=== PATIENT | female | born 1980 | race Hispanic/Latino ===

== ENCOUNTER 2016-04-29 18:14 | Emergency (ER) | payer OTHER ==
[~2016-04-29] VITALS: Ht 152.4 cm; Wt 86.2 kg
[~2016-04-29 18:14] MED LIST: HYDROMORPHONE HC2 M1 PO; IBUPROFEN800 M1 PO; VITAFOL-ONE CA1 EACH PO
--- NOTE | 2016-04-29 18:40 | ED GI/GU/ABDOMINAL COMPLAINT ---
History of Present Illness General Chief Complaint: Female Urogenital Problems Stated Complaint: LOWER ABDOMINAL PAIN WITH VAGINAL BLEEDING Source: patient Exam Limitations: no limitations Vital Signs & Intake/Output Vital Signs & Intake/Output Vital Signs Date Time Temp Pulse Resp B/P Pulse O2 O2 Flow FiO2 Ox Delivery Rate 04/294 97.1 75 16 105/52 98 Room Air 04/29 2142 97.0 72 17 108/64 96 Room Air 04/29 2047 77 103/60 04/29 1951 66 18 95/58 98 Room Air 04/29 1819 96.2 70 18 97/68 95 Room Air ED Intake and Output 04/30 0000 04/29 1200 Intake Total 1000 Output Total Balance 1000 Intake, IV 1000 Patient 190 lb Weight Allergies Coded Allergies: NO KNOWN ALLERGIES (08/19/15) Reconcile Medications Hydromorphone HCl 2 MG TABLET 2 MG PO Q3P PRN PAIN SCALE 7-10 (SEVERE) Ibuprofen 800 MG TABLET 800 MG PO Q6P PRN PAIN SCALE 4-6 (MODERATE) Triage Note: RECEIVED 36 YO KAMILA ANDERS FROM HOME WITH C/O LOWER ABDOMINAL PAIN X 3 DAYS WITH VAGINAL BLEEDING. PT M1. LMP APPROX 2 WEEKS AGO. Triage Nurses Notes Reviewed? yes ? N Is pt currently ? No HPI: tHIS PATIENT is a 36-year-old [id number] female who presented to the emergency department today for evaluation of abdominal pain and vaginal bleeding. The patient last gave approximately 8 months ago by section without any complications. She reported that her last menstrual period was approximately 2 weeks ago and heavier than normal. She reported that she bled heavily for approximately 9 days. The patient was recently started approximately one month ago on a control pill from her CORPORATE HUMAN RESOURCES MANAGER, Dr. Jain, to help regulate her periods. The patient reported that her typical periods last approximately 5 days, are heavy during the first 2 days, and then lessen. The patient reported that 3 days ago she started having vaginal bleeding. She reported that since its onset it has been heavy. She reported that she goes through more than 7 pads daily. She reported that yesterday she had a migraine on the right side of her head and behind her right eye. Today she woke up not feeling well and then developed lower abdominal pain which gets up to a 10 out of 10. She reported that she took medicine at home which helped the pain, however, she does not remember the name of the medication. She reported that it was a liquid. Patient reported that she is now feeling nauseous. She denied any vomiting. The patient's last bowel movement was this morning. No diarrhea or constipation. The patient is not currently sexually active. She denied any fevers, chills, chest pain, difficulty breathing, or any urinary symptoms. (MATEUS LANG PA-C) Past History Travel History Traveled to [place] past 21 day No Medical History Any Pertinent Medical History? 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 No (MATEUS LANG PA-C) Review of Systems Review of Systems Constitutional: Reports: no symptoms. EENTM: Reports: no symptoms. Respiratory: Reports: no symptoms. Cardiovascular: Reports: no symptoms. GI: Reports: see HPI. Genitourinary: Reports: see HPI. Musculoskeletal: Reports: see HPI. Skin: Reports: no symptoms. Neurological/Psychological: Reports: no symptoms. Hematologic/Endocrine: Reports: see HPI. All Other Systems: Reviewed and Negative (MATEUS LANG PA-C) Physical Exam Physical Exam Gastrointestinal: normal bowel sounds, soft, OBESE. nO ORGANOMEGALY. nONDISTENDED. dIFFUSELY TENDER TO SUPERFICIAL AND DEEP PALPATION. nEGATIVE rOVSING SIGN. nEGATIVE PSOAS SIGN. nEGATIVE Tran SIGN. nO REBOUND OR GUARDING. nO MASSES APPRECIATED. pRIOR pFANNENSTIEL INCISION WELL-HEALED Comments: Well-developed well-nourished person in mild distress HEENT: Normal EENT exam, head normocephalic, moist mucous membranes Pupils equally round and reactive to light. Neck: Supple, no lymphadenopathy Back: Normal inspection. No CVA tenderness Cardiovascular: Regular rate and rhythm with no murmurs Respiratory: Chest nontender. No respiratory distress. Breath sounds clear to auscultation bilaterally External genitalia: Normal external genitalia with no lesions or edema. Active bleeding from the vaginal opening. No rectal bleeding. Extremity: Normal and equal pulses Neuro: Alert oriented x3, cranial nerves II through XII grossly intact. Skin: No appreciable rash on exposed skin, skin is warm and dry. Psych: Mood and affect is normal Core Measures ACS in differential dx? No Severe Sepsis Present: No Septic Shock Present: No (RICKEY SIMON,MATEUS) Progress Differential Diagnosis: AAA, AMI, appendicitis, biliary colic, bowel obstruction , colon cancer, cholecystitis, diverticulitis, ectopic , endometritis, gastritis, hepatitis, ischemic bowel, inflamm bowel dis, intrauterine , kidney stone, ovarian cyst, ovarian torsion, pancreatitis, PID/cervicitis, PUD/ GERD, perforated viscous, threatened AB, UTI/pyelo, HEMORRHAGIC CYST, FIBROID Plan of Care: Orders Procedure Date/time Status HUMAN BETA HCG SCREEN 04/29 1838 Complete URINALYSIS 04/29 1825 Complete PARTIAL THROMBOPLASTIN TIME 04/29 1824 Complete PROTHROMBIN TIME 04/29 1824 Complete LIPASE 04/29 1824 Complete DIRECT BILIRUBIN 04/29 1824 Complete COMPREHENSIVE METABOLIC PANEL 04/29 1824 Complete CBC WITHOUT DIFFERENTIAL 04/29 1824 Complete AMYLASE 04/29 1824 Complete TYPE & SCREEN (NOT X-MATCH) 04/29 1824 Complete Laboratory Tests 04/29/161958: Urine Color YEL, Urine Clarity HAZY H, Urine pH 6.0, Ur Specific [place] 1.025, Urine Protein NEG, Urine Ketones NEG, Urine Nitrite NEG, Urine Bilirubin NEG, Urine Urobilinogen 0.2, Ur Leukocyte Esterase NEG, Ur Microscopic SEDIMENT EXAMINED, Urine RBC >75 H, Urine WBC 1-3 H, Ur Epithelial Cells FEW, Urine Mucus FEW, Urine Hemoglobin LARGE H, Urine Glucose NEG 04/29/161838: Anion Gap 11, Estimated GFR > 60, BUN/Creatinine Ratio 22.9, Glucose 97, Calcium 9.3, Total Bilirubin 0.4, Direct Bilirubin 0.3, AST 17, ALT 31, Alkaline Phosphatase 75, Total Protein 6.8, Albumin 3.9, Globulin 2.9, Albumin/Globulin Ratio 1.3, Amylase < 30 L, Lipase 197, Total Beta HCG NEGATIVE, PT 11.5, INR 1.10, APTT 30, CBC w Diff NO MAN DIFF REQ, RBC 4.78, MCV 80.5 L, MCH 26.8 L, RDW 14.5, MPV 8.7, Gran % 58.6, Lymphocytes % 34.6, Monocytes % 4.9, Eosinophils % 1.6, Basophils % 0.3, Absolute Granulocytes 4.4, Absolute Lymphocytes 2.6, Absolute Monocytes 0.4, Absolute Eosinophils 0.1, Absolute Basophils 0, PUBS MCHC 33.3 04/29/161825: Total Beta HCG Cancelled Diagnostic Imaging: Viewed by Me: Ultrasound. Discussed w/RAD: Ultrasound. Radiology Impression: PATIENT: MARY SHAH PRESENT AGE: 36 PATIENT ACCOUNT NO: [id number] : 80 LOCATION: [facility] ORDERING PHYSICIAN: MATEUS LANG PA-C SERVICE DATE: 04/29/16 EXAM TYPE: US - US-TRANSVAGINAL EXAMINATION: US PELVIC CLINICAL INFORMATION: Heavy vaginal bleeding. COMPARISON: None TECHNIQUE: Transabdominal and transvaginal examination was performed. FINDINGS: LMP: 2 weeks ago The uterus is anteverted, measuring 10.8 x 4.5 x 5.8 cm. The cervical length is 3 cm. Endometrial thickness is 10 mm. Neither ovary was visualized. No adnexal masses were evident. No free fluid within the pelvis. IMPRESSION: The uterus appeared unremarkable. Endometrial thickness measured up to 1 cm. Neither ovary was visualized. No adnexal masses. DICTATED BY: MATI ESCALANTE MD DATE/TIME DICTATED: 04/29/161935 DESIGN AND SALES CONSULTANT:HELGA DATE/TIME TRANSCRIBED:04/29/161935 CONFIDENTIAL, DO NOT COPY WITHOUT APPROPRIATE AUTHORIZATION. <Electronically signed in Other Vendor System> SIGNED BY: MATI ESCALANTE MD 04/29/161942 Initial ED EKG: none Comments: 04/29/2016 8:14:19 PM: I spoke to on-call CORPORATE HUMAN RESOURCES MANAGER, Dr. Snyder, who is covering for Dr. Jain. He stated that as long as her H&H is normal, we can either give her 25 mg of IV Premarin here in the emergency department, or at her go home and take her control pill every 12 hours until the bleeding stops. He reported that based on the ultrasound does not seem like she would need a D& C. 04/29/2016 10:26:55 PM: The patient is requesting sleep at this time. Her blood pressure has been coming up. I discussed this patient with Dr. France who is in agreement the plan of this patient can be discharged safely with CORPORATE HUMAN RESOURCES MANAGER follow-up. I counseled the patient extensively on the importance of calling her CORPORATE HUMAN RESOURCES MANAGER tomorrow morning to schedule a follow-up appointment and returning to the emergency department immediately for any worsening symptoms. (MATEUS LANG PA-C) Departure Departure Disposition: HOME OR SELF CARE Condition: Stable Clinical Impression Primary Impression: Vaginal bleeding Referrals: CHARLIE AGUERO,HAILEY (PCP/Family) Additional Instructions: Please rest and be sure to stay hydrated. Take your control pill every 12 hours until the bleeding stops, then resume taking your control pill every 24 hours. Please call first thing tomorrow morning to schedule a follow-up appointment with your CORPORATE HUMAN RESOURCES MANAGER. Return to the emergency room immediately for any worsening symptoms or concerns. Departure Forms: Customer Survey General Discharge Information (MATEUS LANG PA-C) PA/ASSEMBLY WORKER Co-Sign Statement Statement: ED Attending supervision documentation- [] I saw and evaluated the patient. I have also reviewed all the pertinent lab results and diagnostic results. I agree with the findings and the plan of care as documented in the PA's/ASSEMBLY WORKER's documentation. [x] I have reviewed the ED Record and agree with the PA's/ASSEMBLY WORKER's documentation. [] Additions or exceptions (if any) to the PAs/ASSEMBLY WORKER's note and plan are summarized below: [] (ROLAN AGUERO,CHARLENE Ramires)
[2016-04-29 19:19] LABS: PT 11.5 SEC (9.4-12.5); PTT 30 SEC (25-37)
[2016-04-29 19:20] LABS: ABSOLUTE BASOPHIL COUNT 0 /CUMM (0.0-0.2); ABSOLUTE EOSINOPHIL COUNT 0.1 /CUMM (0.0-0.7); ABSOLUTE GRANULOCYTE CT 4.4 /CUMM (1.4-6.5); ABSOLUTE LYMPH COUNT 2.6 /CUMM (1.2-3.4); ABSOLUTE MONOCYTE COUNT 0.4 /CUMM (0.10-0.60); BASOPHIL % 0.3 % (0.0-2.0); EOSINOPHIL % 1.6 % (0-5); GRANULOCYTE % 58.6 % (42.2-75.2); HEMATOCRIT 38.5 % (37-47); MEAN CORPUSCULAR HGB 26.8 PG (27.0-31.0); MEAN CORPUSCULAR HGB CONC 33.3 G/DL (33.0-37.0); MEAN CORPUSCULAR VOLUME 80.5 FL (81.0-99.0); MEAN PLATELET VOLUME 8.7 FL (7.4-10.4); PLATELET COUNT 241 /CUMM (130-400); RBC DISTRIBUTION WIDTH 14.5 % (11.5-14.5); RED BLOOD CELL CT 4.78 /CUMM (4.20-5.40); WHITE BLOOD CELL COUNT 7.5 /CUMM (4.8-10.8)
--- NOTE | 2016-04-29 19:43 | ULTRASOUND REPORT ---
EXAMINATION: US PELVIC CLINICAL INFORMATION: Heavy vaginal bleeding. COMPARISON: None TECHNIQUE: Transabdominal and transvaginal examination was performed. FINDINGS: LMP: 2 weeks ago The uterus is anteverted, measuring 10.8 x 4.5 x 5.8 cm. The cervical length is 3 cm. Endometrial thickness is 10 mm. Neither ovary was visualized. No adnexal masses were evident. No free fluid within the pelvis. IMPRESSION: The uterus appeared unremarkable. Endometrial thickness measured up to 1 cm. Neither ovary was visualized. No adnexal masses.
[2016-04-29 22:34] VITALS: BP 105/52
== END 2016-04-29 22:44 ==
LOC: ERH 18:14
PROVIDERS: Physician Assistant
DX: N93.9 Abnormal uterine and vaginal bleeding, unspecified (principal)
CPT/HCPCS: 81001; 96360; 96361; 96374; 96375; J2405

== ENCOUNTER 2017-03-17 21:08 | Emergency (ER) | payer OTHER ==
[2017-03-17 21:26] VITALS: BP 113/75
--- NOTE | 2017-03-17 21:51 | ED GENERAL ADULT ---
History of Present Illness General Chief Complaint: General Adult Stated Complaint: "DIZZY, NAUSEA, FLUID COMING OUT BOTH EARS" Source: patient, family Exam Limitations: no limitations Vital Signs & Intake/Output Vital Signs & Intake/Output Vital Signs Date Time Temp Pulse Resp B/P B/P Pulse O2 O2 Flow FiO2 Mean Ox Delivery Rate 03/17 2125 98.1 72 22 113/75 98 Allergies Coded Allergies: NO KNOWN ALLERGIES (08/19/15) Reconcile Medications Amoxicillin/Potassium Clav (Augmentin 875-125 Tablet) 875 MG-125 MG TABLET 1 TAB PO BID ear infection Hydromorphone HCl 2 MG TABLET 2 MG PO Q3P PRN PAIN SCALE 7-10 (SEVERE) Ibuprofen 600 MG TABLET 1 TAB PO TID PRN pain with food Ibuprofen 800 MG TABLET 800 MG PO Q6P PRN PAIN SCALE 4-6 (MODERATE) Meclizine HCl 25 MG TABLET 1 TAB PO TIDPRN PRN vertigo Ondansetron (Zofran Odt) 4 MG TAB.RAPDIS 1 TAB SL TID PRN nausea Triage Note: PER PT ? VERTIGO HAVE HAD IT BEFORE BUT TODAY IS THE WORST. DIZZY WITH POSITION CHANGE AND NAUSEA Triage Nurses Notes Reviewed? yes Onset: Gradual Duration: day(s): Timing: recent history Injury Environment: home Severity: mild, moderate Modifying Factors: Improves With: rest. Associated Symptoms: cough, bilateral ear pain w/drainage and vertigo : No Patient currently breastfeeds: No HPI: 36 yo woman h/o otitis media presents with 1 day of bilateral ear discharge, vertigo. She notes that she has had clear drainage a/w ear pain from both ears, along with vertiginous symptoms when she moves her head. She has no fever, chills, dyspnea, wheezing, headache. She is otherwise well. Past History Travel History Traveled to [place] past 21 day No Medical History Any Pertinent Medical History? 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 No Review of Systems Review of Systems Constitutional: Reports: no symptoms. EENTM: Reports: no symptoms. Respiratory: Reports: no symptoms. Cardiovascular: Reports: no symptoms. GI: Reports: no symptoms. Genitourinary: Reports: no symptoms. Musculoskeletal: Reports: no symptoms. Skin: Reports: no symptoms. Neurological/Psychological: Reports: no symptoms. Hematologic/Endocrine: Reports: no symptoms. Immunologic/Allergic: Reports: no symptoms. All Other Systems: Reviewed and Negative Physical Exam Physical Exam General Appearance: well developed/nourished, no apparent distress Head: atraumatic, normal appearance Eyes: Bilateral: normal appearance. Ears, Nose, Throat: right tm w/ erythema, fluid, left tm w/ scant erythema oropharynx wnl Neck: normal inspection, supple, full range of motion Respiratory: normal breath sounds, chest non-tender, no respiratory distress, quiet respiration Cardiovascular: regular rate/rhythm Gastrointestinal: normal bowel sounds, soft, non-tender Back: normal inspection Extremities: normal inspection Neurologic/Psych: no motor/sensory deficits, awake, alert, oriented x 3, pt exhibits vertigo with rapid head movement. Reflexes: 1+: bicep (R), bicep (L), knee (R), knee (L). Skin: intact, normal color, warm/dry Core Measures ACS in differential dx? No CVA/TIA Diagnosis: No Sepsis Present: No Sepsis Focused Exam Completed? No Progress Differential Diagnoses I considered the following diagnoses in my evaluation of the patient: otitis vs serous otitis vs other. Plan of Care: Laboratory Tests 03/17/17 2113: Urine Test Cancelled Initial ED EKG: none Departure Departure Disposition: HOME OR SELF CARE Condition: Stable Clinical Impression Primary Impression: Otitis media Secondary Impressions: Vertigo Referrals: Porsche Corrales APRN (PCP/Family) Departure Forms: Customer Survey General Discharge Information Prescriptions: Current Visit Scripts Amoxicillin/Potassium Clav (Augmentin 875-125 Tablet) 1 TAB PO BID #20 TAB Ibuprofen 1 TAB PO TID PRN pain #30 TAB with food Meclizine HCl 1 TAB PO TIDPRN PRN vertigo #30 TAB Ondansetron (Zofran Odt) 1 TAB SL TID PRN nausea #10 TAB Critical Care Note Critical Care Note Critical Care Time: non-applicable
[2017-03-17] MEDS ORDERED: MECLIZINE HCL25 MG PO ×2 (22:08→22:09)
[2017-03-17] MEDS ORDERED: AUGMENTIN 875-1 EACH PO ×2 (22:08→22:09)
[2017-03-17] MEDS ORDERED: ZOFRAN ODT4 M1 SL ×2 (22:08→22:09)
[2017-03-17] MEDS ORDERED: IBUPROFEN600 M1 PO ×2 (22:08→22:09)
== END 2017-03-17 22:21 ==
LOC: ERH 21:08
DX: H66.93 Otitis media, unspecified, bilateral (principal); R42 Dizziness and giddiness
CPT/HCPCS: 81025; J3101; J3490